=== PATIENT | male | born 1995 | race Caucasian/White ===

== ENCOUNTER 2020-10-21 09:01 | Emergency (ER) | payer BC ==
[2020-10-21 09:08] VITALS: BP 143/93; TEMP 97.8
--- NOTE | 2020-10-21 09:39 | ED ---
Psych HPI - General Chief Complaint: Psychiatric Symptoms Stated Complaint: Mental Health Time Seen by Provider: 10/21/20 09:10 Source: patient Mode of arrival: ambulatory - History of Present Illness Initial Comments: 24-year-old male patient presents to the emergency department today requesting psychiatric evaluation. Patient denies having any symptoms but states that he is going through a custody mediation of with his ex significant other. States that she is trying to declare him mentally unfit and is requiring him to have a psychiatric evaluation. Patient denies any current suicidal or homicidal ideation. States that he has never been admitted to a mental health unit. Does not take any psychiatric medications. Denies any current physical symptoms or concerns. Denies any street drug use. Reports drinking socially. - Related Data Allergies Allergy/AdvReac Type Severity Reaction Status Date / Time No Known Allergies Allergy Verified 10/21/20 09:08 Review of Systems ROS Statement: Those systems with pertinent positive or pertinent negative responses have been documented in the HPI. ROS Other: All systems not noted in ROS Statement are negative. Past Medical History Past Medical History: No Reported History History of Any Multi-Drug Resistant Organisms: None Reported Past Surgical History: No Surgical Hx Reported Past Psychological History: No Psychological Hx Reported Smoking Status: Never smoker Past Alcohol Use History: None Reported Past Drug Use History: None Reported General Exam Limitations: no limitations General appearance: alert, in no apparent distress, other (This is a well- developed, well-nourished adult male patient in no acute distress. Vital signs upon presentation are temperature 97.8F, pulse 98, respirations 18, blood pressure 143/93, pulse ox 99% on room air per) Respiratory exam: Present: normal lung sounds bilaterally. Absent: respiratory distress, wheezes, rales, rhonchi, stridor Cardiovascular Exam: Present: regular rate, normal rhythm, normal heart sounds. Absent: systolic murmur, diastolic murmur, rubs, gallop, clicks Neurological exam: Present: alert, oriented X3, CN II-XII intact Psychiatric exam: Present: normal affect, normal mood Skin exam: Present: warm, dry, intact, normal color. Absent: rash Course Vital Signs 10/21/20 09:02 Temperature 97.8 F Pulse Rate 98 Respiratory 18 Rate Blood Pressure 143/93 O2 Sat by Pulse 99 Oximetry Medical Decision Making - Medical Decision Making 24-year-old male patient presents to the emergency department today requesting psychiatric evaluation. States he is going through a custody mediation with his ex-significant other and she has time to declare him mentally unfit. He denies any history of psychiatric issues. He is not having any current suicidal or homicidal ideation. We did discuss emergency psychiatric evaluations and how I did not feel that this would fit his needs. He is given a list of outpatient psychiatric resources. He is instructed to try contacting an outside psychiatrist to perform this evaluation if necessary. Return parameters were discussed in detail. He verbalizes understanding and agrees with this plan. C ase discussed with my attending Dr. Boss. Disposition Clinical Impression: Feared condition not demonstrated Disposition: HOME SELF-CARE Condition: Good Is patient prescribed a controlled substance at d/c from ED?: No Referrals: None,Stated [Primary Care Provider] - 1-2 days Time of Disposition: 09:39
[2020-10-21 09:40] VITALS: PULSE 98; RESP 18
== END 2020-10-21 09:48 | disposition home or self-care (01) ==
LOC: EC 09:01
DX: Z71.1 Person with feared health complaint in whom no diagnosis is made (principal)
CPT/HCPCS: 99283